=== PATIENT | female | born 2000 | race African-American/Black ===

== ENCOUNTER 2023-06-03 14:57 | Outpatient (CLI) | payer OTHER ==
[2023-06-04] MEDS: ALBUTEROL 1 PUFF INH STA (10:35)
== END 2023-06-03 14:58 | disposition home or self-care (01) ==
LOC: RT 14:57
PROVIDERS: ATTEND Family Medicine
DX: R05.9 Cough, unspecified (principal)
CPT/HCPCS: 94060; 94729